=== PATIENT | male | born 1950 | race Caucasian/White ===

== ENCOUNTER 2021-04-21 05:55 | Inpatient (IN) | payer OTHER ==
[~2021-04-21] VITALS: Ht 152.4 cm; Wt 76.8 kg
[2021-04-21] MEDS ORDERED: HYDROCODON-ACE1 EAC6 PO (10:42)
[2021-04-21] MEDS ORDERED: PREDNISONE5 MG PO (10:45)
[2021-04-21] MEDS ORDERED: ESOMEPRAZOLE MA40 MG PO (10:46)
[2021-04-21 11:11] LABS: RED BLOOD COUNT 5.28 M/UL (4.20-5.50); WHITE BLOOD COUNT 7.6 K/UL (4.5-11.0)
[2021-04-22 06:52] LABS: HEMOGLOBIN 13.9 gm/dl (14.0-17.5); RED BLOOD COUNT 5.26 M/UL (4.20-5.50)
[2021-04-23 04:39] LABS: HEMOGLOBIN 12.2 gm/dl (14.0-17.5)
[2021-04-23 04:42] LABS: RED BLOOD COUNT 4.7 M/UL (4.20-5.50); WHITE BLOOD COUNT 8.3 K/UL (4.5-11.0)
[2021-04-24 07:03] LABS: HEMOGLOBIN 12.5 gm/dl (14.0-17.5); WHITE BLOOD COUNT 9.5 K/UL (4.5-11.0)
[2021-04-24] MEDS ORDERED: ELIQUIS 5 MG TAB5 MG PO (10:13)
[2021-04-24] MEDS ORDERED: LOPRESSOR 25 MG25 MG PO (10:13)
== END 2021-04-24 15:33 | disposition home or self-care (01) | DRG 291 ==
LOC: M/S 09:06
PROVIDERS: Internal Medicine; Physician Assistant; ADMIT Internal Medicine
PROC: B24BZZZ Ultrasonography of Heart with Aorta (ICD-10-PCS; principal; 2021-04-21)
DX: I13.0 Hypertensive heart and chronic kidney disease with heart failure and stage 1 through stage 4 chronic kidney disease, or unspecified chronic kidney disease (principal); I50.33 Acute on chronic diastolic (congestive) heart failure; J18.9 Pneumonia, unspecified organism; N17.9 Acute kidney failure, unspecified; I48.91 Unspecified atrial fibrillation; Z20.822 Contact with and (suspected) exposure to COVID-19; H91.90 Unspecified hearing loss, unspecified ear; I08.3 Combined rheumatic disorders of mitral, aortic and tricuspid valves; I49.3 Ventricular premature depolarization; D63.1 Anemia in chronic kidney disease; N18.30 Chronic kidney disease, stage 3 unspecified; M19.90 Unspecified osteoarthritis, unspecified site; K21.9 Gastro-esophageal reflux disease without esophagitis; Z96.642 Presence of left artificial hip joint; Z98.890 Other specified postprocedural states; Z87.891 Personal history of nicotine dependence; Z80.8 Family history of malignant neoplasm of other organs or systems; Z79.52 Long term (current) use of systemic steroids; Z82.3 Family history of stroke; Z86.16 Personal history of COVID-19
CPT/HCPCS: ECHO; 36415; 71045; 80048; 80053; 82550; 82553; 83735; 83880; 84100; 84439; 84443; 84484; 85025; 93005; 93306; 94640; 94664; 94760; 97161; 97165; J1650; J1956